=== PATIENT | female | born 1955 | race Caucasian/White ===

== ENCOUNTER → 2016-12-12 | Outpatient (CLI) | payer BC | LOC: MC.RAD 14:40 | DX: Z12.31 Encounter for screening mammogram for malignant neoplasm of breast (principal) ==

== ENCOUNTER → 2022-08-19 | Outpatient (CLI) | payer MEDICARE ==
[2022-08-19] VITALS (12 sets, daily range): BP systolic 102–131; BP diastolic 39–80; PULSE 87–104; TEMP 98.8
[~2022-08-19] VITALS: Ht 160 cm; Wt 89.4 kg
[~2022-08-19] MED LIST: ALTACE 10MG TAB10 MG PO; COLACE 100100 MG/CAP PO; HCTZ 25MG TAB25 MG PO; KLONOPIN 0.5MG0.5 MG PO; MIRALAX PA17 GM/Dose; NORCO 325 MG-51 TAB PO; SYNTHROID0.05 MG/TA PO; ZOFRAN ODT4 MG PO
[2022-08-19 11:21] LABS: INR 1.3 (0.8-3.0); PROTHROMBIN TIME 15.2 SECONDS (9.7-12.8)
--- NOTE | 2022-08-19 11:36 | NUR ---
pt to ct per ambulation. Pt on table with left side down. Monitors applied
--- NOTE | 2022-08-19 11:51 | NUR ---
Specimens obtained and placed in formalin by Dr Devries. Specimen labeled.
== END ==
LOC: COL.RAD 09:40
DX: C78.7 Secondary malignant neoplasm of liver and intrahepatic bile duct (principal)
CPT/HCPCS: 32108

== ENCOUNTER 2023-01-16 08:35 | Outpatient (CLI) | payer MEDICARE ==
[~2023-01-16] VITALS: Ht 162.6 cm; Wt 65.8 kg
[~2023-01-16 08:35] MED LIST changes: +CIPRO 500MG TA500 MG PO; +FENTANYL 25 MCG TD; +FLAGYL500 MG PO; +K-DUR 10 MEQ T10 MEQ PO; +MIRALAX PA17 GM/Dose PO; +OMNICEF 300MG300 MG PO; +PRILOTC PO; +SENNA-S 50 MG-81 TAB PO; -ZOFRAN ODT4 MG PO; +ZOFRAN8 MG PO
[2023-01-16 08:59] VITALS: BP 118/57; PULSE 87; TEMP 98.8
[2023-01-16 09:28] LABS: GRAN # 2.2 K/mm3 (1.4-6.5); GRAN % 71.8 % (42.2-75.2); HEMOGLOBIN 10.6 g/dl (12.5-16.0); LYMPH # 0.4 K/mm3 (1.2-3.4); LYMPH % 12.3 % (20.0-51.0); MEAN CELL VOLUME 106 fl (80.0-100.0); MEAN CORPUSCULAR HEMOGLOBIN 34 pg (27-31); MEAN CORPUSCULAR HGB CONC 32 g/dl (33.0-37.0); MONO # 0.5 K/mm3 (0.1-0.6); MONO % 15.6 % (1.7-9.3); PLATELET COUNT 488 K/mm3 (130-400); RED BLOOD COUNT 3.12 M/mm3 (4.10-5.30); REDCELL DISTRIBUTION WIDTH-CV 24.1 % (11.5-14.5)
[2023-01-16 09:31] LABS: HEMATOCRIT 33.2 % (37.0-47.0)
[2023-01-16 09:42] LABS: ALBUMIN 2.3 gm/dL (3.4-4.8); BILIRUBIN,TOTAL 0.6 mg/dL (0.2-1.2); CALCIUM 8.8 mg/dL (8.4-10.2); CREATININE, serum 0.78 mg/dL (0.57-1.11); POTASSIUM 4.8 mmol/L (3.5-4.5)
--- NOTE | 2023-01-16 09:50 | NUR ---
Pt returns not enough fluid in abdomen to drain. Pt INT removed. 2x2 and coban to site. Pressure per coban. Pt out to talk with and explained regarding no fluid. Pt out to car per wheelchair. Pt up and into car assisted by .
== END 2023-01-16 10:09 ==
LOC: COL.RAD 08:35
PROVIDERS: Internal Medicine
DX: C18.4 Malignant neoplasm of transverse colon (principal); R18.8 Other ascites

== ENCOUNTER → 2023-02-05 | Outpatient (CLI) | payer MEDICARE ==
[~2023-02-05] MED LIST changes: +BENTYL 20MG20 MG/TAB PO; +FENTANYL 50MCG TD; +LEVAQUIN 750MG750 M1 PO
== END ==
LOC: COL.RAD 07:19
DX: C18.4 Malignant neoplasm of transverse colon (principal); C78.7 Secondary malignant neoplasm of liver and intrahepatic bile duct; R59.1 Generalized enlarged lymph nodes; R18.8 Other ascites
CPT/HCPCS: Q9967

== ENCOUNTER 2023-02-11 14:47 | Observation (INO) | payer MEDICARE ==
[~2023-02-11] VITALS: Ht 162.6 cm; Wt 67.0 kg
[~2023-02-11 14:47] MED LIST changes: -LEVAQUIN 750MG750 M1 PO
[2023-02-11 16:05] LABS: HEMOGLOBIN 10.6 g/dl (12.5-16.0); MEAN CELL VOLUME 113 fl (80.0-100.0); MEAN CORPUSCULAR HEMOGLOBIN 37 pg (27-31); MEAN CORPUSCULAR HGB CONC 33 g/dl (33.0-37.0); MEAN PLATELET VOLUME 9.3 fl (7.4-10.4); PLATELET COUNT 294 K/mm3 (130-400); RED BLOOD COUNT 2.88 M/mm3 (4.10-5.30); REDCELL DISTRIBUTION WIDTH-CV 24.5 % (11.5-14.5)
[2023-02-11 16:11] LABS: HEMATOCRIT 32.5 % (37.0-47.0)
[2023-02-11 16:25] LABS: ALBUMIN 2.7 gm/dL (3.4-4.8); BILIRUBIN,TOTAL 0.9 mg/dL (0.2-1.2); CALCIUM 9.5 mg/dL (8.4-10.2); CREATININE, serum 0.86 mg/dL (0.57-1.11); TOTAL PROTEIN 6.2 gm/dL (6.2-8.1)
[2023-02-11 16:37] LABS: BAND 11 % (0-10); LYMPHOCYTE 4 % (20.0-51.0); NEUTROPHILS 83 % (42.0-75.2); NUCLEATED RED BLOOD CELL 1 (0-6); PLATELET ESTIMATE NORMAL (NORMAL)
[2023-02-11 16:38] LABS: ANISOCYTOSIS 3+; OVALOCYTES 1+
[2023-02-11 16:39] LABS: HYPOCHROMIA 1+
[2023-02-11 16:44] LABS: COLLECTION METHOD CATHETER
[2023-02-11 17:00] LABS: SQUAMOUS EPITHELIAL 0-2 /hpf (0-10); URINE APPEARANCE Clear (CLEAR/HAZY); URINE BACTERIA Moderate /hpf (NONE SEEN); URINE BLOOD Negative (NEGATIVE); URINE COLOR Yellow (YELLOW); URINE GLUCOSE Negative (NEGATIVE); URINE KETONE Negative (NEGATIVE); URINE NITRATE Positive (NEGATIVE); URINE PROTEIN(semi-quant) Negative (NEGATIVE); URINE RBC None Seen /hpf (0-2); URINE UROBILINOGEN 0.2 E.U/dL (0.2-1.0)
[2023-02-11 21:29] VITALS: BP_SYST 113
--- NOTE | 2023-02-11 21:30 | NUR ---
Admitted to med floor from ER, weakness/confusion/UTI,, VSS, on RA, afebrile, alert.oriented x4--forgetful at times but states is much better than just 2 hours ago in regards to confusion. Pt pleasant, denies pain, has duragesic patch to back, Has IV fluids of LR at 100cc/hr to IV site right AC,, Pt has PORT to left chest accessed by oncology and has her home chemo dose infusing per home pump,, states it goes until thursday mid morning- pt on fall risk- bed alarm on.
[2023-02-11 22:28] VITALS: BP 113/70; PULSE 70; TEMP 97.5
[2023-02-11 23:28] VITALS: BP 118/58; PULSE 64; TEMP 97.5
[2023-02-12] VITALS (12 sets, daily range): BP systolic 50–124; BP diastolic 48–63; PULSE 50–84; TEMP 97.5–98.2
--- NOTE | 2023-02-12 02:30 | NUR ---
Has been sleeping well, woke up and very confused- crying, doesnt know where she is or who brought her here-- stayed with pt for awhile, Up to bathroom with 2 assists, weak,, did void without problems-- back to bed,, within about 10 minutes she became much clearer/not as confused. bed alarm on. VSS, denies pain
--- NOTE | 2023-02-12 11:55 | NUR ---
Initial visit: [employer]er stopped by room on rounds. Pt was resting and content. Pt has no needs right now. [employer]er will follow up as needed.
--- NOTE | 2023-02-12 15:51 | NUR ---
project crew worker met with patient and patient's , Danilo, whom was at bedside, to discuss discharge planning. Patient lives in [place] with her , Danilo, P# [phone]. Patient's primary care physician is Dr. Herron and preferred pharmacy is [facility]. Patient does not currently have any difficulties paying for medications. Patient's DPOA-HC is Danilo. Patient has a walker, briefs and toilet riser. Patient requires assistance with most of her ADLS. Danilo expressed he is able to transport patient with patient's best friend's car because she is unable to get into their trucks anymore. Patient expressed they would be car shopping soon so they don't borrow the car anymore. Patient would like to return home at time of discharge. project crew worker spoke with Dr. Mixon, hospitalist, whom expressed patient may benefit from Home Health services if she was open to those services. project crew worker will follow to provide options from [employer]. Discharge Plan: Home
--- NOTE | 2023-02-12 19:39 | NUR ---
REPORT RECIEVED FROM ZANE MARKS. PT RESTING IN BED WATCHING TV. PT AMBULATED IN ROOM UTILIZING WALKER AND X1 STAFF ASSIST. PT BACK TO BED. PT DENIES PAIN. CALL LIGHT IN PLACE. ALL NEEDS MET AT THIS TIME.
--- NOTE | 2023-02-12 19:48 | NUR ---
SHIFT ASSESSMENT COMPLETE, SEE DOCUMENTATION. CALL LIGHT IN PLACE. ALL NEEDS MET AT THIS TIME.
[2023-02-13] VITALS (8 sets, daily range): BP systolic 97–129; BP diastolic 50–68; PULSE 75–95; TEMP 97.7–97.8
[2023-02-13] MEDS ORDERED: LEVAQUIN 750MG750 M1 PO (09:29)
[2023-02-13 10:05] LABS: HEMOGLOBIN 10.4 g/dl (12.5-16.0); MEAN CELL VOLUME 112 fl (80.0-100.0); MEAN CORPUSCULAR HEMOGLOBIN 37 pg (27-31); MEAN CORPUSCULAR HGB CONC 33 g/dl (33.0-37.0); PLATELET COUNT 295 K/mm3 (130-400); RED BLOOD COUNT 2.78 M/mm3 (4.10-5.30); REDCELL DISTRIBUTION WIDTH-CV 23.9 % (11.5-14.5)
[2023-02-13 10:09] LABS: HEMATOCRIT 31.2 % (37.0-47.0)
[2023-02-13 10:12] LABS: PROTHROMBIN TIME 11.4 SECONDS (9.7-12.8)
[2023-02-13 10:18] LABS: CALCIUM 8.3 mg/dL (8.4-10.2); CREATININE, serum 0.68 mg/dL (0.57-1.11); POTASSIUM 4.1 mmol/L (3.5-4.5)
== END 2023-02-13 14:44 | disposition home or self-care (01) ==
LOC: COL.ER 14:47 → MEDICAL 20:56
PROVIDERS: Emergency Medicine; Internal Medicine; ADMIT Internal Medicine
DX: G92.8 Other toxic encephalopathy (principal); C18.9 Malignant neoplasm of colon, unspecified; R18.8 Other ascites; E03.9 Hypothyroidism, unspecified; E87.5 Hyperkalemia; E87.1 Hypo-osmolality and hyponatremia; E83.52 Hypercalcemia; E86.9 Volume depletion, unspecified; I10 Essential (primary) hypertension; F41.9 Anxiety disorder, unspecified; N39.0 Urinary tract infection, site not specified; B95.2 Enterococcus as the cause of diseases classified elsewhere; Z79.890 Hormone replacement therapy; Z87.891 Personal history of nicotine dependence; Z79.899 Other long term (current) drug therapy; E44.1 Mild protein-calorie malnutrition; R63.4 Abnormal weight loss; Z68.25 Body mass index [BMI] 25.0-25.9, adult
CPT/HCPCS: G0378; J0692; J0696; J1650; J7030; J7120

== ENCOUNTER 2023-02-27 08:46 | Outpatient (CLI) | payer MEDICARE ==
[~2023-02-27] VITALS: Ht 162.6 cm; Wt 67.6 kg
[~2023-02-27 08:46] MED LIST changes: +LEVAQUIN 750MG750 M1 PO
[2023-02-27 09:10] VITALS: BP 95/00; PULSE 100; TEMP 97.5
[2023-02-27 10:45] VITALS: BP 83/61; PULSE 72
[2023-02-27 11:15] VITALS: BP 89/59; PULSE 94
[2023-02-27 11:30] VITALS: BP 91/60; PULSE 92
[2023-02-27 11:59] LABS: PERITONEAL -POLYMORPHONUCLEAR 15.2 % (0-25)
[2023-02-27 12:00] VITALS: BP 100/60; PULSE 89
[2023-02-27 12:30] VITALS: BP 100/59; PULSE 83
--- NOTE | 2023-02-27 12:40 | NUR ---
Pt assisted to transfer from recliner to wheelchair x1 assist. She slept through most of infusion, was encouraged while awake to drink fluids. She had sips of hot chocolate and water. Port flushed and deaccessed, site dressed with bandaid. She is assisted out to 's car.
[2023-03-06] MEDS ORDERED: [UNRECOGNIZED DRUG - OTHER] IV (09:04)
[2023-03-06] MEDS ORDERED: DOXYCYCLINE 10100 MG PO (09:05)
[2023-03-06] MEDS ORDERED: MAGNESIUM250 M1 PO (09:06)
[2023-03-06] MEDS ORDERED: REMERON 15M15 MG/TA1 PO (09:07)
== END 2023-02-27 12:40 | disposition home or self-care (01) ==
LOC: COL.RAD 08:46
PROVIDERS: Internal Medicine
DX: C18.9 Malignant neoplasm of colon, unspecified (principal)
CPT/HCPCS: J1644; J7040; P9047